=== PATIENT | male | born 1950 | race African-American/Black ===

== ENCOUNTER → 2018-12-13 | Outpatient (CLI) | payer MEDICARE, BC | END | disposition home or self-care (01) | LOC: US 10:23 | PROVIDERS: ATTEND Internal Medicine Nephrology | DX: N40.0 Benign prostatic hyperplasia without lower urinary tract symptoms (principal) | CPT/HCPCS: 76770 ==

== ENCOUNTER → 2019-05-29 | Outpatient (CLI) | payer MEDICARE, BC | END | disposition home or self-care (01) | LOC: RAD 11:12 | PROVIDERS: ATTEND Internal Medicine Nephrology | DX: I82.409 Acute embolism and thrombosis of unspecified deep veins of unspecified lower extremity (principal) | CPT/HCPCS: 93971 ==